=== PATIENT | female | born 1935 | race Caucasian/White ===

== ENCOUNTER → 2016-10-23 | Outpatient (CLI) | payer MEDICARE, OTHER | END | disposition home or self-care (01) | LOC: PCVCCLINIC 16:30 | PROVIDERS: ATTEND Internal Medicine Cardiovascular Disease | DX: I48.0 Paroxysmal atrial fibrillation (principal); I10 Essential (primary) hypertension; E78.00 Pure hypercholesterolemia, unspecified; I77.89 Other specified disorders of arteries and arterioles; I35.0 Nonrheumatic aortic (valve) stenosis; I47.1 Supraventricular tachycardia; I65.23 Occlusion and stenosis of bilateral carotid arteries; I49.1 Atrial premature depolarization; Z79.899 Other long term (current) drug therapy; Z88.1 Allergy status to other antibiotic agents | CPT/HCPCS: 80061; 93005; G0463 ==

== ENCOUNTER → 2017-02-10 | Outpatient (CLI) | payer MEDICARE, OTHER ==
--- NOTE | 2017-02-10 15:08 | PCVCIMAG ---
EXAM: BILATERAL CAROTID DUPLEX INDICATION: Carotid Occlusive Disease. FINDINGS: Doppler Measurements (centimeters per second): RIGHT: Peak CCA-63, Peak ECA-70, Diastolic ICA-24, Peak ICA-92, ICA/CCA Ratio-1.5. LEFT: Peak CCA-62, Peak ECA-97, Diastolic ICA-32, Peak ICA-163, ICA/CCA Ratio-2.6. RIGHT CAROTID: The carotid bulb has mild plaque. The proximal internal carotid artery shows <40% stenosis. The common carotid artery shows no significant stenosis. The external carotid artery shows no significant stenosis. LEFT CAROTID: The carotid bulb has moderate plaque. The proximal internal carotid artery shows 60% stenosis. The common carotid artery shows no significant stenosis. The external carotid artery shows no significant stenosis. Antegrade flow in both vertebral arteries. IMPRESSION: <40% stenosis of the right internal carotid artery with mild plaque. 60% stenosis of the left internal carotid artery with moderate plaque. Left carotid stenosis has shown mild progression since February 2016 study. LOC:[id number]
--- NOTE | 2017-02-10 15:37 | PCVCIMAG ---
APPROVED REPORT Study performed: 02/10/2017 13:12:15 EXAM: Comprehensive 2D, Doppler, and color-flow Echocardiogram Patient Location: Echo lab Status: routine BSA: 1.76 HR: 68 bpmBP: 152/78 mmHg Rhythm: NSR w/ PACs Other Information Study Quality: Adequate Risk Factors: Cardiac Risk Factors: HTN Indications Aortic Stenosis, Paroxysmal A Fib 2D Dimensions LVEF(%): 38.88 (>50%) IVSd: 9.52 (7-11mm)LVOT Diam: 21.72 (18-24mm) LVDd: 43.70 mm PWd: 8.65 (7-11mm)Ascending Ao: 36.06 (22-36mm) LVDs: 35.53 (25-40mm) Left Atrium: 42.90 (27-40mm) Aortic Root: 35.68 mm LV Single Plane 4CH: 53.67 % LV Single Plane 2CH: 54.40 %Randolph's LVEF: 54.03 % Biplane EF: 54.5 % Volumes Left Atrial Volume (Systole) Single Plane 4CH: 69.01 mLSingle Plane 2CH: 63.03 mL LA ESV Index: 38.00 mL/m2 Aortic Valve AoV Peak [place].: 2.68 m/s AO Peak Gr.: 28.80 mmHgLVOT Max P.76 mmHg AO Mean Gr.: 13.63 mmHgLVOT Mean P.28 mmHg AO V2 Mean: 1.71 m/sLVOT Max V: 1.11 m/s AO V2 VTI: 66.13 cmLVOT Mean V: 0.69 m/s ALVINO (VTI): 1.42 [id number] V1 VTI: 25.31 cm ALVINO Vmax: 1.53 cm2 SV (LVOT): 93.70 mL Mitral Valve E/A Ratio: 0.8 MV Decel. Time: 322.06 ms MV E Max [place].: 0.87 m/s MV A [place].: 1.06 m/s IVRT: 86.51 ms Pulmonary Valve PV Peak [place].: 0.94 m/sPV Peak Gr.: 3.53 mmHg Pulmonary Vein P Vein S: 0.65 m/sP Vein A: 0.36 m/s P Vein D: 0.78 m/sP Vein A Dur.: 145.3 msec P Vein S/D Ratio: 0.83 Tricuspid Valve TR Peak [place].: 2.62 m/s TR Peak Gr.: 27.40 mmHg Left Ventricle The left ventricle is normal size. There is normal LV segmental wall motion. There is normal left ventricular wall thickness. Left ventricular systolic function is normal. The left ventricular ejection fraction is within the normal range. LVEF is 60%. Grade I - abnormal relaxation pattern. Right Ventricle The right ventricle is normal size. The right ventricular systolic function is normal. Atria Left atrium is mildly dilated. The right atrium size is normal. Aortic Valve The aortic valve is mildly to moderately calcified. No aortic regurgitation is present. There is mild valvular aortic stenosis. Calculated aortic valve area is 1.5 cm2 with maximum pressure gradient of 29 mmHg and mean pressure gradient of 14 mmHg. Mitral Valve The mitral valve is normal in structure. Mild mitral regurgitation. No evidence of mitral valve stenosis. Tricuspid Valve The tricuspid valve is normal in structure. Mild tricuspid regurgitation with PAP of 34 mmHg. Pulmonic Valve The pulmonary valve is normal in structure. There is no pulmonic valvular regurgitation. Great Vessels The aortic root is normal in size. IVC is normal in size and collapses with >50% inspiration Pericardium There is no pericardial effusion. <Conclusion> The left ventricle is normal size. LVEF is 60%. Grade I - abnormal relaxation pattern. The right ventricle is normal size. Left atrium is mildly dilated. The right atrium size is normal. The aortic valve is mildly to moderately calcified. There is mild valvular aortic stenosis. Calculated aortic valve area is 1.5 cm2 with maximum pressure gradient of 29 mmHg and mean pressure gradient of 14 mmHg. Mild mitral regurgitation. Mild tricuspid regurgitation with PAP of 34 mmHg. There is no pericardial effusion.
== END | disposition home or self-care (01) ==
LOC: PCVCIMAG 13:22
PROVIDERS: ATTEND Internal Medicine Cardiovascular Disease
DX: I65.23 Occlusion and stenosis of bilateral carotid arteries (principal); I08.1 Rheumatic disorders of both mitral and tricuspid valves; I10 Essential (primary) hypertension; I48.0 Paroxysmal atrial fibrillation; E11.9 Type 2 diabetes mellitus without complications; E78.00 Pure hypercholesterolemia, unspecified; E03.9 Hypothyroidism, unspecified; Z79.01 Long term (current) use of anticoagulants; Z79.84 Long term (current) use of oral hypoglycemic drugs; Z79.899 Other long term (current) drug therapy; Z88.2 Allergy status to sulfonamides
CPT/HCPCS: 93005; 93306; 93880; G0463

== ENCOUNTER → 2017-11-10 | Outpatient (CLI) | payer MEDICARE, OTHER | END | disposition home or self-care (01) | LOC: PCVCCLINIC 14:17 | DX: I48.0 Paroxysmal atrial fibrillation (principal); I35.0 Nonrheumatic aortic (valve) stenosis; I10 Essential (primary) hypertension; I25.10 Atherosclerotic heart disease of native coronary artery without angina pectoris; I65.29 Occlusion and stenosis of unspecified carotid artery; E78.00 Pure hypercholesterolemia, unspecified; E11.9 Type 2 diabetes mellitus without complications; R09.89 Other specified symptoms and signs involving the circulatory and respiratory systems; Z88.8 Allergy status to other drugs, medicaments and biological substances; Z79.899 Other long term (current) drug therapy; Z79.84 Long term (current) use of oral hypoglycemic drugs | CPT/HCPCS: 80061; 93005 ==

== ENCOUNTER → 2017-11-21 | Outpatient (CLI) | payer MEDICARE, OTHER | END | disposition home or self-care (01) | LOC: PCVCIMAG 12:01 | DX: R09.89 Other specified symptoms and signs involving the circulatory and respiratory systems (principal) | CPT/HCPCS: 93978 ==

== ENCOUNTER → 2018-06-23 | Outpatient (CLI) | payer MEDICARE, OTHER ==
--- NOTE | 2018-06-23 13:53 | PCVCIMAG ---
EXAM: BILATERAL CAROTID DUPLEX INDICATION: Carotid Occlusive Disease. FINDINGS: Doppler Measurements (centimeters per second): RIGHT: Peak CCA-64, Peak ECA-70, Diastolic ICA-15, Peak ICA-59, ICA/CCA Ratio-0.9. LEFT: Peak CCA-75, Peak ECA-121, Diastolic ICA-27, Peak ICA-140, ICA/CCA Ratio-1.9. RIGHT CAROTID: The carotid bulb has mild plaque. The proximal internal carotid artery shows <40% stenosis. The common carotid artery shows no significant stenosis. The external carotid artery shows no significant stenosis. LEFT CAROTID: The carotid bulb has moderate plaque. The proximal internal carotid artery shows 50-60% stenosis. The common carotid artery shows no significant stenosis. The external carotid artery shows no significant stenosis. Antegrade flow in both vertebral arteries. IMPRESSION: <40% stenosis of the right internal carotid artery with mild plaque. 50-60% stenosis of the left internal carotid artery with moderate plaque. Left carotid stenosis measures less severe than prior study from January 2017. LOC:[id number]
--- NOTE | 2018-06-24 11:37 | PCVCIMAG ---
APPROVED REPORT Study performed: 06/23/2018 14:10:09 EXAM: Comprehensive 2D, Doppler, and color-flow Echocardiogram Patient Location: Echo lab Room #: 2Status: routine BSA: 1.76 HR: 67 bpmBP: 152/86 mmHg Rhythm: NSR Other Information Study Quality: Good Indications Aortic Valve Disease Diabetes Atrial Fibrillation Aortic stenosis 2D Dimensions IVSd: 7.73 (7-11mm)LVOT Diam: 20.14 (18-24mm) LVDd: 47.89 mm PWd: 8.04 (7-11mm)Ascending Ao: 37.15 (22-36mm) LVDs: 31.30 (25-40mm) Left Atrium: 38.65 (27-40mm) Aortic Root: 31.98 mm LV Single Plane 4CH: 53.97 % LV Single Plane 2CH: 62.46 % Biplane EF: 58.2 % Volumes Left Atrial Volume (Systole) Single Plane 4CH: 60.82 mLSingle Plane 2CH: 54.65 mL Biplane LA Volume: 58.00 mLLA ESV Index: 33.00 mL/m2 Aortic Valve AoV Peak [place].: 2.85 m/s AO Peak Gr.: 33.21 mmHgLVOT Max P.17 mmHg AO Mean Gr.: 13.39 mmHgLVOT Mean P.38 mmHg AO V2 Mean: 1.61 m/sLVOT Max V: 1.05 m/s AO V2 VTI: 67.70 cmLVOT Mean V: 0.72 m/s ALVINO (VTI): 1.22 [id number] V1 VTI: 25.98 cm ALVINO Vmax: 1.18 cm2 SV (LVOT): 82.75 mL Mitral Valve E/A Ratio: 1.5 MV Decel. Time: 176.40 ms MV E Max [place].: 1.20 m/s MV A [place].: 0.82 m/s IVRT: 72.66 ms TDI E/Lateral E': 17.14E/Medial E': 17.14 Medial E' [place].: 0.07 m/s Lateral E' [place].: 0.07 m/s Pulmonary Valve PV Peak Gr.: 2.01 mmHg Pulmonary Vein P Vein S: 0.59 m/sP Vein A: 0.35 m/s P Vein D: 0.85 m/sP Vein A Dur.: 72.7 msec P Vein S/D Ratio: 0.69 Tricuspid Valve TR Peak [place].: 3.07 m/s TR Peak Gr.: 37.67 mmHg TV Vmax: 0.60 m/sPA Pressure: 45.00 mmHg Left Ventricle The left ventricle is normal size. There is normal LV segmental wall motion. There is normal left ventricular wall thickness. Left ventricular systolic function is normal. The left ventricular ejection fraction is within the normal range. LVEF is 55-60%. Findings suggest the left atrial pressure is elevated. Right Ventricle The right ventricle is normal size. The right ventricular systolic function is normal. Atria Left atrium is at the upper limits of normal. The right atrium size is normal. Aortic Valve Aortic valve is trileaflet. Aortic valve leaflets are moderately sclerotic with decreased opening. No aortic regurgitation is present. Moderate aortic stenosis. Highest mean aortic valve gradient is 13 mmHg. Peak aortic valve gradient is 32 mmHg. Calculated ALVINO by the continuity equation is 1.1-1.2 cm2. Mitral Valve Mild mitral annular calcification. Mitral valve leaflets open well. The mitral valve is normal in structure and function. Mild to moderate mitral regurgitation. No evidence of mitral valve stenosis. Tricuspid Valve The tricuspid valve is normal in structure. There is no tricuspid valve regurgitation noted. Pulmonic Valve The pulmonary valve is normal in structure. There is no pulmonic valvular regurgitation. Great Vessels The aortic root is normal in size. The ascending aorta is borderline dilated at 3.7cm. IVC is normal in size and collapses >50% with inspiration. Pericardium There is no pericardial effusion. There is no pleural effusion. <Conclusion> The left ventricle is normal size. LVEF is 55-60%. Findings suggest the left atrial pressure is elevated. The right ventricle is normal size. Left atrium is at the upper limits of normal. Aortic valve is trileaflet. Aortic valve leaflets are moderately sclerotic with decreased opening. Moderate aortic stenosis. Highest mean aortic valve gradient is 13 mmHg. Peak aortic valve gradient is 32 mmHg. Calculated ALVINO by the continuity equation is 1.1-1.2 cm2. Mild to moderate mitral regurgitation. There is no tricuspid valve regurgitation noted. The ascending aorta is borderline dilated at 3.7cm. There is no pericardial effusion.
== END | disposition home or self-care (01) ==
LOC: PCVCIMAG 12:51
PROVIDERS: ATTEND Internal Medicine Cardiovascular Disease
DX: I65.23 Occlusion and stenosis of bilateral carotid arteries (principal); I48.0 Paroxysmal atrial fibrillation; I35.0 Nonrheumatic aortic (valve) stenosis; I10 Essential (primary) hypertension; E78.00 Pure hypercholesterolemia, unspecified; E11.9 Type 2 diabetes mellitus without complications; E03.9 Hypothyroidism, unspecified; Z79.899 Other long term (current) drug therapy
CPT/HCPCS: 36415; 80061; 93005; 93306; 93880; G0463

== ENCOUNTER → 2019-03-08 | Outpatient (CLI) | payer MEDICARE, OTHER | END | disposition home or self-care (01) | LOC: PCVCCLINIC 16:28 | PROVIDERS: ATTEND Internal Medicine Cardiovascular Disease | DX: I10 Essential (primary) hypertension (principal); I48.0 Paroxysmal atrial fibrillation; E78.00 Pure hypercholesterolemia, unspecified; I35.0 Nonrheumatic aortic (valve) stenosis; I65.23 Occlusion and stenosis of bilateral carotid arteries; E11.9 Type 2 diabetes mellitus without complications; E03.9 Hypothyroidism, unspecified; Z82.49 Family history of ischemic heart disease and other diseases of the circulatory system; Z79.899 Other long term (current) drug therapy; Z88.2 Allergy status to sulfonamides | CPT/HCPCS: 36415; 80061; 93005; G0463 ==